=== PATIENT | male | born 1995 | race American Indian/Alaskan Native ===

== ENCOUNTER 2020-12-15 14:02 | Emergency (ER) | payer SELFPAY ==
[2020-12-15 14:44] VITALS: BP 145/96
== END 2020-12-15 15:20 | disposition home or self-care (01) ==
LOC: ED 14:02
DX: Z00.8 Encounter for other general examination (principal); Z53.21 Procedure and treatment not carried out due to patient leaving prior to being seen by health care provider

== ENCOUNTER 2021-04-24 07:57 | Emergency (ER) | payer SELFPAY ==
--- NOTE | 2021-04-24 09:28 | Emergency Department Report ---
ED ENT HPI - General Chief complaint: Dental/Oral Stated complaint: Oral pain Time Seen by Provider: 04/24/21 09:12 Source: patient Mode of arrival: Ambulatory Limitations: No Limitations - History of Present Illness Initial comments: 28-year-old male presents to the ER today complaining of dental pain, right lower jaw. He states that he has had a bad tooth in the area for a while, but yesterday started having increasing pain and swelling to the area. He states that currently he does not have a dentist and he does not have insurance. He states he has been taking Tylenol without much relief. He denies any difficulty swallowing, difficulty opening his mouth, drooling, facial redness, fever or chills. MD complaint: tooth pain -: Gradual, week(s) - Related Data Previous Rx's Medication Instructions Recorded Last Taken Type Amoxicillin [Trimox CAP] 500 mg PO Q8H #30 capsule 04/24/21 Unknown Rx Ketorolac [Toradol] 10 mg PO Q6H PRN #20 tablet 04/24/21 Unknown Rx Allergies Allergy/AdvReac Type Severity Reaction Status Date / Time No Known Allergies Allergy Unverified 12/15/20 14:40 ED Dental HPI - General Chief complaint: Dental/Oral Stated complaint: Oral pain Time Seen by Provider: 04/24/21 09:12 Source: patient Mode of arrival: Ambulatory Limitations: No Limitations - Related Data Previous Rx's Medication Instructions Recorded Last Taken Type Amoxicillin [Trimox CAP] 500 mg PO Q8H #30 capsule 04/24/21 Unknown Rx Ketorolac [Toradol] 10 mg PO Q6H PRN #20 tablet 04/24/21 Unknown Rx Allergies Allergy/AdvReac Type Severity Reaction Status Date / Time No Known Allergies Allergy Unverified 12/15/20 14:40 ED Review of Systems ROS: Stated complaint: Oral pain Other details as noted in HPI Comment: All other systems reviewed and negative ENT: dental pain Respiratory: denies: cough, shortness of breath, wheezing Cardiovascular: denies: chest pain, palpitations Gastrointestinal: denies: abdominal pain, nausea, diarrhea, constipation, hematemesis, hematochezia Genitourinary: denies: urgency, dysuria, frequency, hematuria, discharge, testicular pain, testicular mass Musculoskeletal: denies: back pain, joint swelling, arthralgia Skin: denies: rash, lesions, change in color, change in hair/nails, pruritus Neurological: denies: headache, weakness, numbness, paresthesias, confusion, abnormal gait, vertigo Psychiatric: denies: anxiety, depression, auditory hallucinations, visual hallucinations, homicidal thoughts, suicidal thoughts Hematological/Lymphatic: denies: easy bleeding, easy bruising, swollen glands ED Past Medical Hx - Surgical History Additional Surgical History: peptic ulcer surgery - Medications Home Medications: Home Medications Medication Instructions Recorded Confirmed Last Taken Type Amoxicillin [Trimox CAP] 500 mg PO Q8H #30 capsule 04/24/21 Unknown Rx Ketorolac [Toradol] 10 mg PO Q6H PRN #20 tablet 04/24/21 Unknown Rx ED Physical Exam - General Limitations: No Limitations General appearance: alert, in no apparent distress - Head Head exam: Present: atraumatic, normocephalic, normal inspection - Eye Eye exam: Present: normal appearance, PERRL, EOMI Pupils: Present: normal accommodation - ENT ENT exam: Present: normal exam, mucous membranes moist, TM's normal bilaterally - Expanded ENT Exam Expanded Mouth exam: Present: normal external inspection 1 - Dental Tenderness (Severe), Other (Severe dental decay, with swelling around the gum; no significant facial swelling or redness) Throat exam: Positive: normal inspection - Neck Neck exam: Present: normal inspection, lymphadenopathy (Anterior cervical adenopathy noted). Absent: meningismus - Respiratory Respiratory exam: Absent: respiratory distress - Cardiovascular Cardiovascular Exam: Present: regular rate, normal rhythm, normal heart sounds - Neurological Exam Neurological exam: Present: alert, oriented X3, CN II-XII intact, normal gait - Psychiatric Psychiatric exam: Present: normal affect, normal mood - Skin Skin exam: Present: intact ED Course Vital Signs 04/24/21 08:40 Temperature 98.6 F Pulse Rate 74 Respiratory 16 Rate Blood Pressure 149/100 O2 Sat by Pulse 97 Oximetry Critical care attestation.: If time is entered above; I have spent that time in minutes in the direct care of this critically ill patient, excluding procedure time. ED Disposition Clinical Impression: Pain due to dental caries, Periapical abscess Disposition: HOME / SELF CARE / HOMELESS Is pt being admited?: No Does the pt Need Aspirin: No Condition: Stable Instructions: Dental Abscess, [id number] Additional Instructions: I recommend that you take the amoxicillin as prescribed to completion. Take the Toradol as needed for pain. Do recommend that you continue doing warm salt water rinses. Follow-up with one of the dentist listed on the dental list. Return to the ER if your symptoms worsens or changes in any way. Prescriptions: Ketorolac [Toradol] 10 mg PO Q6H PRN #20 tablet PRN Reason: Pain Amoxicillin [Trimox CAP] 500 mg PO Q8H #30 capsule Referrals: PRIMARY CARE, [Primary Care Provider] - 3-5 Days Time of Disposition: 10:05
[2021-04-24 12:33] VITALS: BP 153/97
== END 2021-04-25 05:10 | disposition home or self-care (01) ==
LOC: ED 07:57
DX: K02.9 Dental caries, unspecified (principal); K04.7 Periapical abscess without sinus; Z98.890 Other specified postprocedural states
CPT/HCPCS: 99282